=== PATIENT | female | born 1990 | race American Indian/Alaskan Native ===

== ENCOUNTER 2021-02-06 13:33 | Emergency (ER) | payer OTHER ==
--- NOTE | 2021-02-06 14:48 | Emergency Department Report ---
ED General Adult HPI - General Chief complaint: Dizziness Stated complaint: DIZZY Time Seen by Provider: 02/06/21 14:09 Source: patient Mode of arrival: Ambulatory Limitations: No Limitations - History of Present Illness Initial comments: 30-year-old -[place] female presents with complaints of intermittent dizziness x1 week. Past medical history includes PTSD. Patient states she stopped taking her lamotrigine about 2 weeks ago without tapering. She denies any head trauma, loss of consciousness, vision changes, weakness in her limbs, difficulty with speech/ambulation, confusion, or memory loss. She admits to intermittent tingling bilaterally in her hands. Patient also admits to mild recurrent headaches, however states that she has had these for many years due to a head injury. She is not on blood thinners. The dizziness worsens with movement of her head and changes in body position. Patient states she had similar episodes of dizziness to months ago and was seen by ENT and evaluated for vertigo. Patient states the tests did not show that she had vertigo. She reports she was treated for a kidney infection for which she was asymptomatic and her symptoms resolved. No urinary symptoms or belly pain/flank pain today per patient. She also denies any fever/chills/sweats - Related Data Previous Rx's Medication Instructions Recorded Last Taken Type Ondansetron [Zofran Odt] 4 mg PO Q8HR PRN #20 tab.rapdis 02/06/21 Unknown Rx clonazePAM [KlonoPIN] 0.5 mg PO BID PRN #10 tab 02/06/21 Unknown Rx Allergies Allergy/AdvReac Type Severity Reaction Status Date / Time azithromycin Allergy Unknown Verified 02/06/21 13:45 levofloxacin [From Levaquin] Allergy Unknown Verified 02/06/21 13:45 ED Review of Systems ROS: Stated complaint: DIZZY Other details as noted in HPI Constitutional: denies: chills, diaphoresis, fever, malaise Respiratory: denies: shortness of breath Cardiovascular: denies: chest pain Gastrointestinal: nausea. denies: vomiting, diarrhea Musculoskeletal: denies: back pain Skin: denies: rash, lesions, change in color Neurological: denies: headache, numbness, paresthesias, abnormal gait ED Past Medical Hx - Medications Home Medications: Home Medications Medication Instructions Recorded Confirmed Last Taken Type Ondansetron [Zofran Odt] 4 mg PO Q8HR PRN #20 tab.rapdis 02/06/21 Unknown Rx clonazePAM [KlonoPIN] 0.5 mg PO BID PRN #10 tab 02/06/21 Unknown Rx ED Physical Exam - General Limitations: No Limitations General appearance: alert, in no apparent distress - Head Head exam: Present: atraumatic, normocephalic - Eye Eye exam: Present: normal appearance, PERRL, EOMI. Absent: scleral icterus - Neck Neck exam: Present: normal inspection, full ROM. Absent: tenderness - Respiratory Respiratory exam: Present: normal lung sounds bilaterally. Absent: respiratory distress - Cardiovascular Cardiovascular Exam: Present: regular rate, normal rhythm. Absent: systolic murmur, diastolic murmur, rubs, gallop - Neurological Exam Neurological exam: Present: alert, oriented X3, CN II-XII intact, normal gait. Absent: motor sensory deficit - Expanded Neurological Exam Expanded Neurological exam: Present: other (Dizziness elicited with sudden head turning and moving from a supine to sitting position) Cerebellar function: Finger to Nose: Normal, Heel to [place]: Normal, Romberg: Normal Sensory exam: Upper Extremity Light Touch: Normal, Lower Extremity Light Touch: Normal Motor strength exam: RUE: 4, LUE: 4, RLE: 4, LLE: 4 Best Eye Response ([place]): (4) open spontaneously Best Motor Response ([place]): (6) obeys commands Best Verbal Response ([place]): (5) oriented [place] Total: 15 - Psychiatric Psychiatric exam: Present: normal affect, normal mood - Skin Skin exam: Present: warm, dry, intact, normal color. Absent: rash ED Course Vital Signs 02/06/21 02/06/21 02/06/21 13:46 15:20 17:00 Temperature 98.6 F Pulse Rate 88 86 Pulse Rate [ 73 Lying] Pulse Rate [ 73 Sitting] Pulse Rate [ 87 Standing] Respiratory 18 18 Rate Blood Pressure 124/80 115/77 Blood Pressure 119/78 [Lying] Blood Pressure [Right] Blood Pressure 129/81 [Sitting] Blood Pressure 121/85 [Standing] O2 Sat by Pulse 95 100 Oximetry 02/06/21 02/06/21 17:05 17:25 Temperature Pulse Rate 86 86 Pulse Rate [ Lying] Pulse Rate [ Sitting] Pulse Rate [ Standing] Respiratory 18 Rate Blood Pressure Blood Pressure [Lying] Blood Pressure 115/77 [Right] Blood Pressure [Sitting] Blood Pressure [Standing] O2 Sat by Pulse 100 Oximetry ED Medical Decision Making - Lab Data Result diagrams: 02/06/21 15:37 02/06/21 15:37 - EKG Data EKG shows normal: sinus rhythm Rate: normal - EKG Data Interpretation: normal EKG - Medical Decision Making 30-year-old -[place] female presents with complaints of intermittent dizziness x1 week. Past medical history includes PTSD. Patient states she stop ped taking her lamotrigine about 2 weeks ago without tapering. She denies any head trauma, loss of consciousness, vision changes, weakness in her limbs, difficulty with speech/ambulation, confusion, or memory loss. She admits to intermittent tingling bilaterally in her hands. Patient also admits to mild recurrent headaches, however states that she has had these for many years due to a head injury. She is not on blood thinners. The dizziness worsens with movement of her head and changes in body position. Patient states she had similar episodes of dizziness to months ago and was seen by ENT and evaluated for vertigo. Patient states the tests did not show that she had vertigo. She reports she was treated for a kidney infection for which she was asymptomatic and her symptoms resolved. No urinary symptoms or belly pain/flank pain today per patient. She also denies any fever/chills/sweats Orthostatic vitals are normal. Neuro exam is normal. Symptoms elicited on exam with rapid movement of head. Anion gap of 18 noted on CMP, otherwise labs are without acute abnormalities. EKG is normal. No nystagmus is observed. Upon further questioning, patient states she was also given meclizine along with the Amoxil and that meclizine seems to help with her symptoms. She states she took some meclizine at home yesterday and her symptoms improved with this medication. Recommend follow-up with ENT and neurology for further evaluation. She is well-appearing, her vitals are normal, she is stable for discharge home. Discussed in detail signs symptoms that should prompt immediate return to the ED with patient who verbalizes understanding. Critical care attestation.: If time is entered above; I have spent that time in minutes in the direct care of this critically ill patient, excluding procedure time. ED Disposition Clinical Impression: Dizziness, Dehydration Disposition: 01 HOME / SELF CARE / HOMELESS Is pt being admited?: No Condition: Stable Instructions: Vertigo, [id number], Dehydration, Adult, [id number], Dizziness, [id number] Prescriptions: clonazePAM [KlonoPIN] 0.5 mg PO BID PRN #10 tab PRN Reason: Vertigo Ondansetron [Zofran Odt] 4 mg PO Q8HR PRN #20 tab.rapdis PRN Reason: Nausea Referrals: [facility] [Provider Group] - 3-5 Days HUBERT RAMIREZ MD [Staff Physician] - 3-5 Days (ENT ) Forms: Work/School Release Form(ED)
[2021-02-06 15:53] LABS: Basophils % (Auto) 0.8 % (0.0-1.8); Eosinophils # (Auto) 0.1 K/mm3 (0.0-0.4); Eosinophils % (Auto) 1.3 % (0.0-4.3); Hematocrit 45.9 % (30.3-42.9); Hemoglobin 14.6 gm/dl (10.1-14.3); Lymphocytes # (Auto) 2.7 K/mm3 (1.2-5.4); Lymphocytes % (Auto) 47.9 % (13.4-35.0); Mean Corpuscular HGB Conc 32 % (30-34); Mean Corpuscular Volume 91 fl (79-97); Monocytes # (Auto) 0.3 K/mm3 (0.0-0.8); Monocytes % (Auto) 5.5 % (0.0-7.3); Platelet Count 150 K/mm3 (140-440); Red Blood Count 5.03 M/mm3 (3.65-5.03); Red Cell Distribution Width 13.5 % (13.2-15.2)
[2021-02-06 15:55] LABS: Bilirubin,Urine NEG (Negative); Blood,Urine SM (Negative); Color,Urine Yellow (Yellow); Mucus,Urine FEW /HPF; Protein,Urine <15 mg/dL mg/dL (Negative); Urobilinogen,Urine < 2.0 mg/dL (<2.0)
[2021-02-06] MEDS ORDERED: MECLIZINE 25 MG TAB PO ONE (16:52)
[2021-02-06 17:08] LABS: Alanine Aminotransferase 28 units/L (7-56); Albumin 4.4 g/dL (3.9-5); BUN/Creatinine Ratio 14; Blood Urea Nitrogen 10 mg/dL (7-17); Calcium 9.3 mg/dL (8.4-10.2); Hemolysis Index 22
[2021-02-06 18:21] VITALS: BP 109/74
--- NOTE | 2021-02-10 10:46 | Electrocardiograph Report ---
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
== END 2021-02-06 18:20 | disposition home or self-care (01) ==
LOC: ED 13:33
DX: E86.0 Dehydration (principal); R42 Dizziness and giddiness; Z88.1 Allergy status to other antibiotic agents; Z79.899 Other long term (current) drug therapy
CPT/HCPCS: 36415; 80053; 81001; 84484; 84703; 85025; 93005; 99283